=== PATIENT | female | born 1975 | race Caucasian/White ===

== ENCOUNTER → 2021-10-12 | Outpatient (CLI) | payer SELFPAY ==
--- NOTE | 2021-10-12 09:49 | Diagnostic Imaging Report ---
INDICATION: Right knee pain status post fall. COMPARISON: None FINDINGS: Multiple radiographic views of the right knee were obtained. There is curvilinear lucency through the lateral margins of the patella. This extends through both the anterior and posterior cortex. [place] view favors acute fracture, as opposed to bipartite patella. There is no significant displacement of the presumed fracture fragments. No large joint effusion is identified. No unexpected radiopaque foreign bodies are seen. IMPRESSION: 1. Findings consistent with acute nondisplaced fracture of the patella. Dictated by: Dictated on workstation # [id number]
== END ==
LOC: RAD FS 08:55
PROVIDERS: ATTEND Nurse Practitioner
DX: S80.01XA Contusion of right knee, initial encounter (principal); M70.41 Prepatellar bursitis, right knee; W19.XXXA Unspecified fall, initial encounter
CPT/HCPCS: 73562

== ENCOUNTER 2022-06-03 13:27 | Day surgery (SDC) | payer SELFPAY ==
[~2022-06-03] VITALS: Ht 162.6 cm; Wt 81.4 kg
[2022-06-03] VITALS (12 sets, daily range): BP systolic 100–116; BP diastolic 57–81
[2022-06-03 14:02] LABS: BILIRUBIN,URINE NEGATIVE (NEGATIVE); CLARITY,URINE SL CLOUDY; COLOR,URINE YELLOW; GLUCOSE, URINE (UA) NEGATIVE (NEGATIVE); KETONES,URINE NEGATIVE (NEGATIVE); LEUKOCYTE ESTERASE ,URINE NEGATIVE (NEGATIVE); NITRITE,URINE NEGATIVE (NEGATIVE); PROTEIN,URINE NEGATIVE (NEGATIVE)
[2022-06-03] MEDS ORDERED: NS IV 1000 ML 1,000 ML IV STA (14:02)
[2022-06-03] MEDS ORDERED: ONDANSETRON 4 MG/2 ML (SDV) Z0FRAN IVP STA (14:02)
[2022-06-03] MEDS ORDERED: KETOROLAC 30 MG/ML VIAL IVP STA (14:02)
[2022-06-03 14:12] LABS: BACTERIA,URINE MODERATE /HPF; WBC,URINE 0-2 /HPF
[2022-06-03 14:13] LABS: AMORPHOUS SEDIMENT,UR FEW AMOR PHOSPHATE /LPF
[2022-06-03 14:37] LABS: BASOPHILS # (AUTO) 0.1 10^3/uL (0.0-0.1); BASOPHILS % (AUTO) 1 % (0-10); EOSINOPHILS # (AUTO) 0.1 10^3/uL (0.0-0.3); EOSINOPHILS % (AUTO) 1 % (0-10); HEMATOCRIT 42 % (35-52); HEMOGLOBIN 14.6 g/dL (11.5-16.0); LYMPHOCYTES # (AUTO) 2.2 10^3/uL (1.0-4.0); LYMPHOCYTES % (AUTO) 13 % (12-44); MEAN CORPUSCULAR HEMOGLOBIN 32 pg (25-34); MEAN CORPUSCULAR HGB CONC 34 g/dL (32-36); MEAN CORPUSCULAR VOLUME 92 fL (80-99); MEAN PLATELET VOLUME 9.5 fL (9.0-12.2); MONOCYTES # (AUTO) 0.8 10^3/uL (0.0-1.0); MONOCYTES % (AUTO) 5 % (0-12); NEUTROPHILS # (AUTO) 13.7 10^3/uL (1.8-7.8); NEUTROPHILS % (AUTO) 81 % (42-75); PLATELET COUNT 259 10^3/uL (130-400); WHITE BLOOD COUNT 16.9 10^3/uL (4.3-11.0)
--- NOTE | 2022-06-03 14:39 | ED Abdominal Pain ---
General Chief Complaint: Abdominal/GI Problems Stated Complaint: LRQ PAIN; NAUSEA; FEVER Nursing Triage Note: PT AMBULATE TO ROOM FS04 WITHOUT DIFFICULTY WITH C/O RIGHT LOWER ABD PAIN, NAUSEA, FEVER, AND LOWER BACK PAIN STARTING YESTERDAY AT 2100. Source of Information: Patient History of Present Illness Date Seen by Provider: Jun 03, 2022 Time Seen by Provider: 14:14 Initial Comments 47-year-old female presenting with complaints of right lower quadrant abdominal pain with nausea and temp up to 100.2 last night. 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 She had decreased appetite and nausea. She last ate a couple of Oreo cookies around 7 AM. She last drank water around noon. She states that she has had an ovarian cyst removed in the past. She denies any other surgeries on her abdomen. She had increased pain around noon and came to the emergency department to be evaluated. She states that she is no longer having menstrual cycles. She has not taken anything for pain other than her chronic diclofenac and medications from home. She has had nausea but no vomiting. Timing/Duration: 24 Hours Severity/Quality: Severe, Sharp, Stabbing Location: RLQ Radiation: RLQ, LLQ, Back Activities at Onset: None Modifying Factors: Worsens With Lying down, Worsens With Movement, Worsens With Palpation Associated Symptoms: Back Pain (Feels that the pain is radiating to her back); No Chest Pain, No Diaphoresis; Fever/Chills, Fatigue; No Headache, No Heartburn; Nausea/Vomiting (Nausea but no vomiting); No Rash, No Shortness of Air, No Swelling/Mass in Abdomen, No Syncope, No Weakness Allergies and Home Medications Allergies Coded Allergies: Sulfa (Sulfonamide Antibiotics) (Verified Allergy, Unknown, 06/03/22) carbamazepine (Verified Allergy, Unknown, 06/03/22) Patient Home Medication List Home Medication List Reviewed: Yes Review of Systems Review of Systems Constitutional: see HPI EENTM: No Symptoms Reported Respiratory: No Symptoms Reported Cardiovascular: No Symptoms Reported Gastrointestinal: See HPI Genitourinary: Denies Burning, Denies Pain Musculoskeletal: see HPI Skin: No rash Psychiatric/Neurological: No Symptoms Reported Endocrine: No Symptoms Reported Past Xsulcjx-Gkkltp-Mmaqpe Hx Patient Social History Tobacco Use?: Yes Tobacco type used: Cigarettes Smoking Status: Current Everyday Smoker Smokeless Tobacco Frequency: Never a User Use of E-Cig and/or Vaping dev: No Use of E-Cig and/or Vaping Farrukh: Never a User Substance use?: No Alcohol Use?: No Pt feels they are or have been: No Past Medical History Surgery/Hospitalization HX: Arthritis, Surgery Right shoulder, Ovarian cyst, High cholesterol Physical Exam Vital Signs Vital Signs - First Documented 06/03/22 13:37 Temp 36.0 Pulse 81 Resp 14 B/P (MAP) 93/65 (74) O2 Delivery Room Air Capillary Refill : Less Than 3 Seconds Height/Weight/BMI Height: '" Weight: lbs. oz. kg; 30.00 BMI Method: General Appearance: WD/WN, mild distress HEENT: PERRL/EOMI, pharynx normal Neck: non-tender, full range of motion, supple, normal inspection Respiratory: chest non-tender, lungs clear, normal breath sounds, no respiratory distress, no accessory muscle use Cardiovascular: normal peripheral pulses, regular rate, rhythm Gastrointestinal: soft, no pulsatile mass, abnormal bowel sounds (hypoactive); No distended; guarding, rebound (RLQ) Rectal: deferred Extremities: normal range of motion, non-tender, normal capillary refill Neurologic/Psychiatric: alert, oriented x 3 Skin: normal color, warm/dry Focused Exam Lactate Level 06/03/22 14:20: Lactic Acid Level 1.67 Lactic Acid Level Laboratory Tests Test 06/03/22 14:20 Lactic Acid Level 1.67 MMOL/L (0.50-2.00) Progress/Results/Core Measures Results/Orders Lab Results Laboratory Tests Test 06/03/22 13:48 06/03/22 14:20 Range/Units Urine Color YELLOW Urine Clarity SL CLOUDY Urine pH 8.0 5-9 Urine Specific [place] 1.015 L 1.016-1.022 Urine Protein NEGATIVE NEGATIVE Urine Glucose (UA) NEGATIVE NEGATIVE Urine Ketones NEGATIVE NEGATIVE Urine Nitrite NEGATIVE NEGATIVE Urine Bilirubin NEGATIVE NEGATIVE Urine Urobilinogen 0.2 < = 1.0 MG/DL Urine Leukocyte Esterase NEGATIVE NEGATIVE Urine RBC (Auto) NEGATIVE NEGATIVE Urine RBC NONE /HPF Urine WBC 0-2 /HPF Urine Squamous Epithelial Cells 2-5 /HPF Urine Crystals PRESENT H /LPF Urine Amorphous Sediment FEW JAVAD PHOSPHATE H /LPF Urine Bacteria MODERATE H /HPF Urine Casts NONE /LPF Urine Mucus NEGATIVE /LPF Urine Culture Indicated NO White Blood Count 16.9 H 4.3-11.0 10^3/uL Red Blood Count 4.61 3.80-5.11 10^6/uL Hemoglobin 14.6 11.5-16.0 g/dL Hematocrit 42 35-52 % Mean Corpuscular Volume 92 80-99 fL Mean Corpuscular Hemoglobin 32 25-34 pg Mean Corpuscular Hemoglobin Concent 34 32-36 g/dL Red Cell Distribution Width 11.9 10.0-14.5 % Platelet Count 259 130-400 10^3/uL Mean Platelet Volume 9.5 9.0-12.2 fL Immature Granulocyte % (Auto) 0 % Neutrophils (%) (Auto) 81 H 42-75 % Lymphocytes (%) (Auto) 13 12-44 % Monocytes (%) (Auto) 5 0-12 % Eosinophils (%) (Auto) 1 0-10 % Basophils (%) (Auto) 1 0-10 % Neutrophils # (Auto) 13.7 H 1.8-7.8 10^3/uL Lymphocytes # (Auto) 2.2 1.0-4.0 10^3/uL Monocytes # (Auto) 0.8 0.0-1.0 10^3/uL Eosinophils # (Auto) 0.1 0.0-0.3 10^3/uL Basophils # (Auto) 0.1 0.0-0.1 10^3/uL Immature Granulocyte # (Auto) 0.1 0.0-0.1 10^3/uL Neutrophils % (Manual) 77 % Lymphocytes % (Manual) 15 % Monocytes % (Manual) 7 % Eosinophils % (Manual) 0 % Basophils % (Manual) 0 % Band Neutrophils 1 % Sodium Level 140 135-145 MMOL/L Potassium Level 3.8 3.6-5.0 MMOL/L Chloride Level 105 98-107 MMOL/L Carbon Dioxide Level 23 21-32 MMOL/L Anion Gap 12 5-14 MMOL/L Blood Urea Nitrogen 11 7-18 MG/DL Creatinine 0.87 0.60-1.30 MG/DL Estimat Glomerular Filtration Rate 82 BUN/Creatinine Ratio 13 Glucose Level 127 H 70-105 MG/DL Lactic Acid Level 1.67 0.50-2.00 MMOL/L Calcium Level 9.6 8.5-10.1 MG/DL Corrected Calcium 9.3 8.5-10.1 MG/DL Total Bilirubin 0.5 0.1-1.0 MG/DL Aspartate Amino Transf (AST/SGOT) 20 5-34 U/L Alanine Aminotransferase (ALT/SGPT) 23 0-55 U/L Alkaline Phosphatase 105 40-136 U/L Total Protein 7.3 6.4-8.2 GM/DL Albumin 4.4 3.2-4.5 GM/DL Lipase 21 8-78 U/L My Orders Orders - TERESA SOLORZANO MD Comprehensive Metabolic Panel (06/03/22 13:52) Lipase (06/03/22 13:52) Ua Culture If Indicated (06/03/22 13:52) Ed Iv/Invasive Line Start (06/03/22 13:52) Cbc With Automated Diff (06/03/22 13:52) Ct Abdomen/Pelvis Wo (06/03/22 13:52) Blood Culture (06/03/22 13:52) Lactic Acid Analyzer (06/03/22 13:52) Urine Bedside (06/03/22 13:53) Ns Iv 1000 Ml (Sodium Chloride 0.9%) (06/03/22 14:02) Ketorolac Injection (Toradol Injection) (06/03/22 14:02) Ondansetron Injection (Zofran Injectio (06/03/22 14:02) Manual Differential (06/03/22 14:20) Fentanyl Inj (Sublimaze Injection) (06/03/22 15:11) Code/Resuscitation (06/03/22 15:26) Ed Admission (Communication) (06/03/22 15:57) Vital Signs/I&O 06/03/22 13:37 Temp 36.0 Pulse 81 Resp 14 B/P (MAP) 93/65 (74) O2 Delivery Room Air Blood Pressure Mean: 74 Progress Progress Note #1: Progress Note Obtain labs and urinalysis. CT scan of the abdomen pelvis without contrast to evaluate for possible kidney stone versus appendicitis versus diverticulitis versus colitis versus cystitis. Give normal saline 1 L IV fluid bolus for hydration, Toradol 30 mg IV for pain, and Zofran 4 mg IV for nausea. Progress Note #2: Progress Note Labs shows elevated white blood cell count to 16.9 with a left shift. Her ch emistry did not show acute significant normality. Her lactic acid was not elevated. CT scan was read out by radiology as having acute appendicitis without perforation or abscess.@[id number] I discussed the case with Dr. Weiss and he advised the patient could be driven down by her and come directly to same-day surgery [place] the [place] [facility] [place] [facility]. He would advise the surgery staff of the patient coming. He stated that we could defer antibiotics at this point and have her just come down to same-day surgery 1521 Dr. Weiss called back to advise that patient will need to go to hospital registration instead of same day surgery. He will do observation admit and anticipate discharge later tonight after surgery. Patient did request something more for pain so a single dose of Fentanyl 50 mcg IV was administered to help with pain. She was tolerating this ok and maintaining her vital signs. She was able to walk out of department with steady gait and her was to drive her directly to [facility]. Stressed importance of not eating or drinking anything as that would delay her going to surgery. However with only water at noon and couple oreo cookies at 7 am she should be NPO to the point that they could do surgery tonight. Diagnostic Imaging Diagonstic Imaging: CT Plain Films/CT/US/NM/MRI: abdomen, pelvis Comments [facility]. [place], [place] NAME: UMER BUSTILLO [facility] REC#: [id number] PT STATUS: REG ER : 1975 PHYSICIAN: TERESA SOLORZANO MD ADMIT DATE: 06/03/22/ER FS Draft Date of Exam:06/03/22 CT ABDOMEN/PELVIS WO PROCEDURE: CT abdomen and pelvis without contrast. TECHNIQUE: Multiple contiguous axial images were obtained through the abdomen and pelvis without the use of intravenous contrast. Auto Exposure Controls were utilized during the CT exam to meet ALARA standards for radiation dose reduction. INDICATION: Right lower quadrant abdominal pain with nausea and fever. No prior studies are available for comparison. No discrete liver mass is detected. Gallbladder is unremarkable. There is no biliary ductal dilatation. Pancreas and spleen are unremarkable. No adrenal mass is identified. No renal calculi or hydronephrosis is identified. Aorta is nonaneurysmal. Bowel loops are normal caliber and nondilated. There is inflammatory process identified in the lower abdomen, upper pelvis region. There is a dilated tubular structure in the right pelvis. This appears to communicate with the cecum and most likely represents an inflamed appendix, seen with acute appendicitis. No other regions of inflammation are seen. Bladder and uterus are unremarkable. No free fluid or fluid collection identified. IMPRESSION: Features suggestive of acute appendicitis. No abscess formation or bowel obstruction is identified. Dictated on workstation # [id number] Dict: 06/03/22 1418 Trans: 06/03/22 1457 CV [id number] Interpreted by: EMPERATRIZ ALMENDAREZ MD Electronically signed by: Reviewed: Reviewed by Me Departure Communication (Admissions) Time/Spoke to Admitting Phy: 15:21 Dr. Weiss will admit patient as observation and do surgery yet tonight. The staff for same day surgery had already left for the day so she will be observation admit to get her to surgery. Impression Primary Impression: Acute appendicitis with localized peritonitis, without gangrene or abscess Qualified Codes: K35.30 - Acute appendicitis with localized peritonitis, without perforation or gangrene Disposition: 30 STILL A PATIENT Condition: Stable Admissions Decision to Admit Reason: Admit from ER (General) Decision to Admit/Date: Jun 03, 2022 Time/Decision to Admit Time: 15:21 Departure-Patient Inst. Referrals: JANEEN MCGUIRE MD (PCP) Primary Care Physician TERESA SOLORZANO MD Jun 03, 2022 14:39
--- NOTE | 2022-06-03 14:57 | Diagnostic Imaging Report ---
PROCEDURE: CT abdomen and pelvis without contrast. TECHNIQUE: Multiple contiguous axial images were obtained through the abdomen and pelvis without the use of intravenous contrast. Auto Exposure Controls were utilized during the CT exam to meet ALARA standards for radiation dose reduction. INDICATION: Right lower quadrant abdominal pain with nausea and fever. No prior studies are available for comparison. No discrete liver mass is detected. Gallbladder is unremarkable. There is no biliary ductal dilatation. Pancreas and spleen are unremarkable. No adrenal mass is identified. No renal calculi or hydronephrosis is identified. Aorta is nonaneurysmal. Bowel loops are normal caliber and nondilated. There is inflammatory process identified in the lower abdomen, upper pelvis region. There is a dilated tubular structure in the right pelvis. This appears to communicate with the cecum and most likely represents an inflamed appendix, seen with acute appendicitis. No other regions of inflammation are seen. Bladder and uterus are unremarkable. No free fluid or fluid collection identified. IMPRESSION: Features suggestive of acute appendicitis. No abscess formation or bowel obstruction is identified. Dictated by: Dictated on workstation # [id number]
[2022-06-03 15:01] LABS: POTASSIUM 3.8 MMOL/L (3.6-5.0)
[2022-06-03 15:02] LABS: ALBUMIN 4.4 GM/DL (3.2-4.5); BILIRUBIN,TOTAL 0.5 MG/DL (0.1-1.0); CALCIUM 9.6 MG/DL (8.5-10.1); CREATININE SERUM 0.87 MG/DL (0.60-1.30); TOTAL PROTEIN 7.3 GM/DL (6.4-8.2)
[2022-06-03 15:10] LABS: BAND NEUTROPHILS 1 %; BASOPHILS % (MANUAL) 0 %; EOSINOPHILS % (MANUAL) 0 %; LYMPHOCYTES % (MANUAL) 15 %; MONOCYTES % (MANUAL) 7 %; NEUTROPHILS % (MANUAL) 77 %
[2022-06-03] MEDS ORDERED: fentaNYL INJ 100 MCG/2 ML AMP IVP STA (15:11)
[2022-06-03] MEDS ORDERED: LACTATED RINGERS 1,000 ML IV SCH (16:30)
[2022-06-03] MEDS ORDERED: ONDANSETRON 4 MG/2 ML (SDV) Z0FRAN ONE ×2 (16:33→17:59)
[2022-06-03] MEDS ORDERED: proPOfol 200 MG/20 ML (DIPRIVAN) VIAL IV ONE (16:33)
[2022-06-03] MEDS ORDERED: fentaNYL INJ 100 MCG/2 ML AMP ONE (16:33)
[2022-06-03] MEDS ORDERED: ROCURONIUM 10 MG/ML 5 ML SYRINGE IV ONE (16:33)
[2022-06-03] MEDS ORDERED: LIDOCAINE PF 2% 5 ML (XYLOCAINE) VIAL ONE (16:33)
[2022-06-03] MEDS ORDERED: MIDAZOLAM 2 MG/2 ML (VERSED) VIAL ONE (16:33)
[2022-06-03] MEDS ORDERED: SEVOFLURANE (ULTANE) 15 ML INHAL SOLN ONE ×2 (16:33→17:51)
[2022-06-03] MEDS ORDERED: BUPIVACAINE 0.5% 30 ML (SENSORCAINE) VIAL ONE (16:35)
[2022-06-03] MEDS ORDERED: ceFAZolin INJECTION 2,000 MG ONE (16:54)
--- NOTE | 2022-06-03 17:03 | Consultation - Surgery ---
History of Present Illness History of Present Illness Patient Consulted On(nehemias/time) 06/03/22 16:57 Time Seen by Provider: 16:39 History of Present Illness Surgery asked to consult regarding RLQ pain, appendicitis. HPI per ED: 47-year-old female presenting with complaints of right lower quadran t abdominal pain with nausea and temp up to 100.2 last night. 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 She had decreased appetite and nausea. She last ate a couple of Oreo cookies around 7 AM. She last drank water around noon. She states that she has had an ovarian cyst removed in the past. She denies any other surgeries on her abdomen. She had in creased pain around noon and came to the emergency department to be evaluated. She states that she is no longer having menstrual cycles. She has not taken anything for pain other than her chronic diclofenac and medications from home. She has had nausea but no vomiting. Timing/Duration: 24 Hours Severity/Quality: Severe, Sharp, Stabbing Location: RLQ Radiation: RLQ, LLQ, Back Activities at Onset: None Modifying Factors: Worsens With Lying down, Worsens With Movement, Worsens With Palpation When I spoke to the pt her main concern was her nausea. Pain got better after she was given pain meds. She described RLQ pain that started yesteday, was constant, sharp and radiating toward right leg. Movement made it worse. Associated with chills, fever and nausea. Allergies and Home Medications Allergies Coded Allergies: Sulfa (Sulfonamide Antibiotics) (Verified Allergy, Unknown, 06/03/22) carbamazepine (Verified Allergy, Unknown, 06/03/22) Patient Home Medication List Home Medication List Reviewed: Yes Past Ihfukha-Evuuvx-Ispcxj Hx Patient Social History Smoking Status: Current Everyday Smoker Alcohol Use?: Yes Have you traveled recently?: No Surgeries History of Surgeries: Yes Surgeries: Orthopedic (Right rotator cuff x 2, right knee surgery, collar bone surgery), Tubal Ligation Respiratory History of Respiratory Disorde: No (but has been smoking 32 yrs, almost can be considered COPD) Cardiovascular History of Cardiac Disorders: Yes Cardiac Disorders: High Cholesterol Neurological History of Neurological Disord: No Genitourinary History of Genitourinary Disor: No Gastrointestinal History of Gastrointestinal Di: No Musculoskeletal History of Musculoskeletal Dis: Yes Musculoskeletal Disorders: Arthritis Endocrine History of Endocrine Disorders: No HEENT History of HEENT Disorders: No Loss of Vision: Denies Hearing Impairment: Denies Cancer History of Cancer: No Psychosocial History of Psychiatric Problem: Yes Behavioral Health Disorders: Anxiety, Depression Integumentary History of Skin or Integumenta: No Family Medical History Significant Family History: Heart Disease (Father had CABGx 5), Cancer (Breast CA aunt, Bladder CA), COPD (mother) Review of Systems-General Constitutional: chills, diaphoresis, fever EENTM: No blurred vision, No mouth swelling, No epistaxis Respiratory: No cough, No dyspnea on exertion, No short of breath Cardiovascular: No chest pain, No palpitations Gastrointestinal: abdominal pain; No jaundice; nausea; No vomiting Genitourinary: No dysuria, No frequency, No hematuria Musculoskeletal: back pain, joint pain, joint swelling Skin: No change in color, No change in hair/nails Psychiatric/Neurological: Anxiety, Depressed; Denies Seizure, Denies Tremors Physical Exam-General Problems Physical Exam Vital Signs Vital Signs - First Documented 06/03/22 13:37 Temp 36.0 Pulse 81 Resp 14 B/P (MAP) 93/65 (74) O2 Delivery Room Air Capillary Refill : Less Than 3 Seconds General Appearance: WD/WN, mild distress Eyes: Bilateral Eye PERRL, Bilateral Eye EOMI HEENT: pharynx normal; No scleral icterus (R), No scleral icterus (L) Neck: non-tender, supple Respiratory: chest non-tender, lungs clear, normal breath sounds, no respiratory distress, no accessory muscle use Cardiovascular: regular rate, rhythm, no murmur Gastrointestinal: soft, no organomegaly, tenderness (RLQ and suprapubic), hernia (small umbilical hernia) Rectal: deferred Back: no CVA tenderness, no vertebral tenderness Extremities: non-tender, no pedal edema, no calf tenderness Neurologic/Psychiatric: cruise staff member II-XII nml as tested, no motor/sensory deficits, alert, normal mood/affect, oriented x 3 Skin: normal color, warm/dry Lymphatic: no adenopathy (neck, axilla or groin) Data Review Labs Laboratory Tests 06/03/22 13:48: Urine Color YELLOW, Urine Clarity SL CLOUDY, Urine pH 8.0, Urine Specific [place] 1.015L, Urine Protein NEGATIVE, Urine Glucose (UA) NEGATIVE, Urine Ketones NEGATIVE, Urine Nitrite NEGATIVE, Urine Bilirubin NEGATIVE, Urine Urobilinogen 0.2, Urine Leukocyte Esterase NEGATIVE, Urine RBC (Auto) NEGATIVE, Urine RBC NONE, Urine WBC 0-2, Urine Squamous Epithelial Cells 2-5, Urine Crystals PRESENTH, Urine Amorphous Sediment FEW JAVAD PHOSPHATEH, Urine Bacteria MODERATEH, Urine Casts NONE, Urine Mucus NEGATIVE, Urine Culture Indicated NO 06/03/22 14:20: White Blood Count 16.9H, Red Blood Count 4.61, Hemoglobin 14.6, Hematocrit 42, Mean Corpuscular Volume 92, Mean Corpuscular Hemoglobin 32, Mean Corpuscular Hemoglobin Concent 34, Red Cell Distribution Width 11.9, Platelet Count 259, Mean Platelet Volume 9.5, Immature Granulocyte % (Auto) 0, Neutrophils (%) (Auto) 81H, Lymphocytes (%) (Auto) 13, Monocytes (%) (Auto) 5, Eosinophils (%) (Auto) 1, Basophils (%) (Auto) 1, Neutrophils # (Auto) 13.7H, Lymphocytes # (Auto) 2.2, Monocytes # (Auto) 0.8, Eosinophils # (Auto) 0.1, Basophils # (Auto) 0.1, Immature Granulocyte # (Auto) 0.1, Neutrophils % (Manual) 77, Lymphocytes % (Manual) 15, Monocytes % (Manual) 7, Eosinophils % (Manual) 0, Basophils % (Manual) 0, Band Neutrophils 1, Sodium Level 140, Potassium Level 3.8, Chloride Level 105, Carbon Dioxide Level 23, Anion Gap 12, Blood Urea Nitrogen 11, Creatinine 0.87, Estimat Glomerular Filtration Rate 82, BUN/Creatinine Ratio 13, Glucose Level 127H, Lactic Acid Level 1.67, Calcium Level 9.6, Corrected Calcium 9.3, Total Bilirubin 0.5, Aspartate Amino Transf (AST/SGOT) 20, Alanine Aminotransferase (ALT/SGPT) 23, Alkaline Phosphatase 105, Total Protein 7.3, Albumin 4.4, Lipase 21 Radiology Date of Exam:06/03/22 CT ABDOMEN/PELVIS WO PROCEDURE: CT abdomen and pelvis without contrast. TECHNIQUE: Multiple contiguous axial images were obtained through the abdomen and pelvis without the use of intravenous contrast. Auto Exposure Controls were utilized during the CT exam to meet ALARA standards for radiation dose reduction. INDICATION: Right lower quadrant abdominal pain with nausea and fever. No prior studies are available for comparison. No discrete liver mass is detected. Gallbladder is unremarkable. There is no biliary ductal dilatation. Pancreas and spleen are unremarkable. No adrenal mass is identified. No renal calculi or hydronephrosis is identified. Aorta is nonaneurysmal. Bowel loops are normal caliber and nondilated. There is inflammatory process identified in the lower abdomen, upper pelvis region. There is a dilated tubular structure in the right pelvis. This appears to communicate with the cecum and most likely represents an inflamed appendix, seen with acute appendicitis. No other regions of inflammation are seen. Bladder and uterus are unremarkable. No free fluid or fluid collection identified. IMPRESSION: Features suggestive of acute appendicitis. No abscess formation or bowel obstruction is identified. Dictated by: Dictated on workstation # [id number] Dict: 06/03/22 1418 Trans: 06/03/22 1617 CVB [id number] Interpreted by: EMPERATRIZ ALMENDAREZ MD Electronically signed by: EMPERATRIZ ALMENDAREZ MD 06/03/22 7994 Assessment/Plan Assessment/Plan Assessment/Plan Acute Appendicitis Pt will be taken to the OR for Laparoscopic Appendectomy, possible open and will get consent for the same. I reviewed the CT myself and discussed her case with ED physician. Will give IV fluids, IV ABX 1/2 prior to incision, pain control and anti-emetics. If the appendix is not ruptured and there are no problems with the case, she will probably be able to go home tonight. I discussed the procedure with pt and her ; going over risks and complications not limited to pain, bleeding, infection, scar, damage to bowel and need for further procedure. All questions answered to their satisfaction. DENNY CONTRERAS DO Jun 03, 2022 17:02
[2022-06-03] MEDS ORDERED: SCOPOLAMINE 1.5 MG (TRANSDERM-SCOP) PATCH ONE (17:07)
[2022-06-03] MEDS ORDERED: LACTATED RINGERS 1,000 ML IV PRN (17:15)
[2022-06-03] MEDS ORDERED: GLYCOPYRROLATE 0.2 MG/ML (ROBINUL) 2 ML VIAL ONE (17:49)
[2022-06-03] MEDS ORDERED: NEOSTIGMINE 3 MG/3 ML VIAL ONE (17:49)
[2022-06-03] MEDS ORDERED: HYDROmorphone 2 MG/ML VIAL (DILAUDID) ONE (17:50)
--- NOTE | 2022-06-03 17:59 | Progress Note-Post Operative ---
Post-Operative Progess Note Surgeon (s)/Docent Coordinator (s) Surgeon DENNY CONTRERAS DO Docent Coordinator: BENNETT Serrato Pre-Operative Diagnosis acute appy Post-Operative Diagnosis same plus right inguinal hernia Procedure & Operative Findings Date of Procedure 06/03/22 Procedure Performed/Findings PROCEDURE: Laparoscopic appendectomy. COMPLICATIONS: None. INDICATIONS: The patient is a 47 year old female who has been having right lower quadrant abdominal pain. Patient's exam consistent with appendicitis. I discussed risk and benefits of laparoscopic appendectomy and all indicated procedures with the possibility being a normal appendix. The patient understands the risks and benefits and wishes to proceed. Consent was signed on the chart. DESCRIPTION OF PROCEDURE: The patient was taken to the operating suite, prepped and draped in a sterile fashion. Timeout was performed. Local anesthetic was infiltrated just above the umbilicus and 11-blade scalpel was used to make a skin incision. Cautery was used to dissect down to the fascia and scored. Kochers were used to grasp and elevate it and the abdomen was then entered. An 0 Vicryl was placed in a [id number] fashion for closure at the end of the case. The balloon trocar was inserted into the abdomen and pneumoperitoneum was achieved. Under direct visualization of the laparoscope, a 5 mm trocar was placed in the suprapubic region and a 5 mm trocar was placed in the left lower quadrant. Appendix was located, in pelvis and purulent fluid seen above the uterus. The base of the appendix was dissected around. Once at the base an Endo-AMIRA 2.5 stapler was then fired across the base of the appendix. The mesoappendix was then divided. It was then placed in an Endobag and removed through the 12 mm trocar site. The abdomen was then irrigated and suctioned. Noted the beginning of right indirect inguinal hernia, small. The abdomen was then desufflated and the trocars were removed. The 0 Vicryl placed at the beginning of the case was then tied closing the 12 mm fascial defect. The skin was then closed using 4-0 Monocryl in a subcuticular fashion. The abdomen was then washed and dried and Skin Affix was placed over the incisions. The patient tolerated the procedure well without any complications and was taken to the recovery room in stable condition. Anesthesia Type GET Estimated Blood Loss Estimated blood loss (mL): scant Specimens/Packing Specimens Removed DENNY Castillo DO Jun 03, 2022 17:59
[2022-06-03] MEDS ORDERED: ACHD5005 PO ×3 (18:02→18:42)
[2022-06-03] MEDS ORDERED: ONDA4TAB11 SL ×3 (18:02→18:42)
--- NOTE | 2022-06-03 18:03 | Discharge Inst-Surgical ---
Discharge Inst-Surgical Depart Medication/Instructions New, Converted or Re-Newed RX: Transmitted to Pharmacy Patient Instructions Follow up Appt: Make appointment for 1 week. [phone] Instructions: No lifting greater than 20 pounds. No strenuous activity. May shower in 24 hours, no tub bath or soaking. Use incentive spirometer at home as directed. No Smoking Skin/Wound Care: May remove bandages in am. You need to leave the Dermabond on incision it will fall off on it's own. Symptoms to Report: Appetite Changes, Extremity Discoloration, Numbness/Tingling, Swelling Increased, Bleeding Excessive, Eyesight Changes, Pain Increased, Urine Color Change, Constipation(Persistent), Fever over 101 degree F, Pain/Pressure in chest, Urinating Difficulty, Cough Up/Vomit Blood, Heart Beat Irreg/Pounding, Pain/Pressure in jaw, Cramps in feet or legs, Lightheadedness, Pain/Pressure in shoulder, Diarrhea(Persistent), Memory Changes Suddenly, Questions/Concerns, Weight gain consecutive days, Dizziness/Fainting, Nausea/Vomiting, Shortness of Breath, Weight gain over 2 pounds If questions or concerns contact your physician Or seek help at emergency department. Activity Activity as Tolerated: Yes Activity Instructions: Avoid Stress to Incision Driving Instructions: No Driving/Refer to Dr. Caldera Discharge Diet: No Restrictions Diet After 24 Hours: Clear Liquid if Nauseous If Any Problems/Questions/Issu: Contact Your Physician, Go to Emergency Room Skin/Wound Care Infection Signs and Symptoms: Increased Redness, Foul Odor of Wound, Increased Drainage, Skin Itchy or Has a Rash, Increased Swelling, Temperature Above 101 F Wound Care Comment: heating pad to shoulder or neck for pain Bathing Instructions: Shower Stitches/[place]/Dermabond Dis: Dermabond Ice Pack: Ice On and Off Site DENNY CONTRERAS DO Jun 03, 2022 18:03
--- NOTE | 2022-06-03 18:14 | Anesthesia-General Post-Op ---
General Patient Condition Mental Status/LOC: Same as Preop Cardiovascular: Satisfactory Nausea/Vomiting: Absent Respiratory: Satisfactory Pain: Controlled Complications: Absent Post Op Complications Complications None Follow Up Care/Instructions Patient Instructions None needed. Anesthesia/Patient Condition Patient Condition Patient is doing well, no complaints, stable vital signs, no apparent adverse anesthesia problems. No complications reported per nursing. D/C [place] [facility] [place]: Yes ADRIENNE AYALA CRNA Jun 03, 2022 18:13
[2022-06-03] MEDS ORDERED: HYDROmorphone 2 MG/ML VIAL (DILAUDID) IV ONE (18:15)
[2022-06-03] MEDS ORDERED: MEPERIDINE (DEMEROL) INJ 50 MG/ML IVP ONE (18:15)
[2022-06-03] MEDS ORDERED: PROMETHAZINE INJ 25 MG/ML (PHENERGAN) AMP IVP ONE (18:15)
== END 2022-06-03 20:14 | disposition home or self-care (01) ==
LOC: EDUNIT# 13:27 → ER FS 13:29 → SDC 16:13 → UNDOADMOB 16:20 → 4TH 16:20 → SDC 16:20 → UNDODISOB 20:14
PROVIDERS: ATTEND Surgery
DX: K35.30 Acute appendicitis with localized peritonitis, without perforation or gangrene (principal); K40.90 Unilateral inguinal hernia, without obstruction or gangrene, not specified as recurrent; F17.210 Nicotine dependence, cigarettes, uncomplicated
CPT/HCPCS: 36415; 74176; 80053; 81000; 83605; 83690; 84703; 85007; 85027; 87040; 87081; 88304; 94760; 96361; 96374; 96375